=== PATIENT | male | born 1965 | race Caucasian/White ===

== ENCOUNTER → 2019-04-07 | Outpatient (CLI) | payer BC ==
--- NOTE | 2019-04-07 20:25 | REP ---
PA and lateral chest: There are no comparisons. The lung [place] are clear. The cardiac size is normal. The mina, mediastinum, and skeletal structures are unremarkable. Impression: Negative PA and lateral chest. Electronically Signed by Gautam Bernardo MD 04/07/2019 08:17 P
== END ==
LOC: M LRY 19:07
PROVIDERS: ATTEND Nurse Practitioner Family
DX: R05 Cough (principal)